=== PATIENT | female | born 1975 | race Caucasian/White ===

== ENCOUNTER 2018-02-26 23:17 | Emergency (ER) | payer BC ==
[2018-02-26] MEDS ORDERED: Acetaminophen 500 MG Tab PO ONE (23:32)
--- NOTE | 2018-02-26 23:36 | EDM.PDOC ---
ED HPI GENERAL MEDICAL PROBLEM - General Chief Complaint: Chest Pain Stated Complaint: CHEST PAIN Time Seen by Provider: 02/26/18 23:20 Source of Information: Reports: Patient, Old Records History Limitations: Reports: No Limitations - History of Present Illness INITIAL COMMENTS - FREE TEXT/NARRATIVE: Bessy returns to [facility] ED with precordial chest pains, sharp in nature, with some radiation into both shoulders this pm. 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 There is no SOB, palpitations, sweats, nausea or rash. She has tried no meds. She has been seen for similar sxs in the past. - Related Data Allergies Allergy/AdvReac Type Severity Reaction Status Date / Time No Known Allergies Allergy Verified 02/26/18 23:52 Home Meds: Home Meds Albuterol [Ventolin HFA] 2 inhaler PO ASDIRECTED 02/26/18 [History] Omeprazole 20 mg PO ASDIRECTED 02/26/18 [History] Sertraline [Zoloft] 100 mg PO DAILY 02/26/18 [History] Past Medical History Respiratory History: Reports: Asthma Gastrointestinal History: Reports: Gastritis, GERD Psychiatric History: Reports: Depression Endocrine/Metabolic History: Reports: Obesity/BMI 30+ Dermatologic History: Reports: Other (See Below) Other Dermatologic History: boil removed - Infectious Disease History Infectious Disease History: Reports: Chicken Pox - Past Surgical History Female Surgical History: Reports: Breast Reduction Musculoskeletal Surgical History: Reports: Arthroscopic Knee Social & Family History - Tobacco Use Smoking Status *Q: Former Smoker Years of Tobacco use: 10 Used Tobacco, but Quit: Yes Month/Year Tobacco Last Used: 12 YEARS AGO Second Hand Smoke Exposure: No - Caffeine Use Caffeine Use: Reports: None - Alcohol Use Days Per Week of Alcohol Use: 3 Number of Drinks Per Day: 3 Total Drinks Per Week: 9 - Recreational Drug Use Recreational Drug Use: No ED ROS GENERAL - Review of Systems Review Of Systems: ROS reveals no pertinent complaints other than HPI. ED EXAM, GENERAL - Physical Exam Exam: See Below Exam Limited By: No Limitations General Appearance: Alert, WD/WN, No Apparent Distress, Anxious Eye Exam: Bilateral Eye: EOMI, Normal Inspection, PERRL Ears: Normal External Exam Nose: Normal Inspection Throat/Mouth: Normal Inspection, Normal Oropharynx Head: Normocephalic Neck: Normal Inspection, Supple, Non-Tender, Full Range of Motion Respiratory/Chest: No Respiratory Distress, Lungs Clear, Normal Breath Sounds, No Accessory Muscle Use, Other (chest tender at costochondral cartilages #2,3, 4 L>>R) Cardiovascular: Regular Rate, Rhythm, No Edema, No Gallop, No JVD, No Murmur GI/Abdominal: Normal Bowel Sounds, Soft, Non-Tender, No Organomegaly, No Distention, No Mass Back Exam: Normal Inspection Extremities: Normal Inspection Neurological: Alert, Oriented, CN II-XII Intact, Normal Gait, No Motor/Sensory Deficits Psychiatric: Normal Affect, Anxious Skin Exam: Warm, Dry, Intact Lymphatic: No Adenopathy Course - Vital Signs Text/Narrative:: Bessy remained stable at the [facility] ED, screening labs were baseline, including Troponin I <0.017. The ekg was unchanged, NSR. Her pain is chest wall, and possibly occupational. Last Recorded V/S: Last Vital Signs Temp 36.9 C 02/26/18 23:27 Pulse 74 02/26/18 23:27 Resp 14 02/26/18 23:27 BP 136/66 02/26/18 23:27 Pulse Ox 96 02/26/18 23:27 - Orders/Labs/Meds Orders: Active Orders 24 hr Category Date Time Status EKG Documentation Completion [RC] ASDIRECTED Care 02/26/18 23:33 Inactive EKG 12 Lead [EK] Routine Ther 02/26/18 23:33 Ordered Labs: Laboratory Tests 02/26/18 02/26/18 02/26/18 Range/Units 23:45 23:45 23:45 WBC 6.7 (4.5-12.0) X10-3/uL RBC 3.81 (3.23-5.20) x10(6)uL Hgb 11.7 (11.5-15.5) g/dL Hct 36.1 (30.0-51.3) % MCV 94.9 (80-96) fL MCH 30.8 (27.7-33.6) pg MCHC 32.4 (32.2-35.4) g/dL RDW 13.9 (11.5-15.5) % Plt Count 159 (125-369) X10(3)uL MPV 9.4 (7.4-10.4) fL Neut % (Auto) 82.3 H (46-82) % Lymph % (Auto) 10.0 L (13-37) % [place] % (Auto) 5.4 (4-12) % Eos % (Auto) 2 (1.0-5.0) % Baso % (Auto) 1 (0-2) % Neut # (Auto) 5.4 (1.6-8.3) # Lymph # (Auto) 0.7 (0.6-5.0) # [place] # (Auto) 0.4 (0.0-1.3) # Eos # (Auto) 0.1 (0.0-0.8) # Baso # (Auto) 0.1 (0.0-0.2) # Sodium 138 (135-145) mmol/L Potassium 3.8 (3.5-5.3) mmol/L Chloride 102 (100-110) mmol/L Carbon Dioxide 28 (21-32) mmol/L BUN 16 (7-18) mg/dL Creatinine 0.9 (0.55-1.02) mg/dL Est Cr Clr Drug Dosing 75.45 mL/min Estimated GFR (MDRD) > 60 (>60) BUN/Creatinine Ratio 17.8 (9-20) Glucose 108 (80-116) mg/dL Calcium 8.7 (8.6-10.2) mg/dL Troponin I < 0.017 L (<0.017-0.056) ng/mL Meds: Medications Discontinued Medications Generic Name Dose Route Start Last Admin Trade Name Freq PRN Reason Stop Dose Admin Acetaminophen 1,000 mg 02/26/18 23:32 02/26/18 23:52 Tylenol Extra Strength PO 02/26/18 23:33 1,000 mg ONETIME ONE Administration Departure - Departure Time of Disposition: 01:11 Disposition: Home, Self-Care 01 Condition: Good Clinical Impression: Chest pain Qualifiers: Chest pain type: other chest pain Qualified Code(s): R07.89 - Other chest pain ; R07.8 - Other chest pain - Discharge Information Referrals: Zeinab Mcginnis PA [Primary Care Provider] - Forms: ED Department Discharge - Problem List & Annotations (1) Chest pain SNOMED Code(s): 20531871 Code(s): R07.9 - CHEST PAIN, UNSPECIFIED Status: Acute Current Visit: Yes Annotation/Comment:: Atypical chest pain with chest wall features, improved with Tylenol this early am. Qualifiers: Chest pain type: other chest pain Qualified Code(s): R07.89 - Other chest pain; R07.8 - Other chest pain - Problem List Review Problem List Initiated/Reviewed/Updated: Yes - My Orders Last 24 Hours: My Active Orders 02/26/18 23:33 EKG Documentation Completion [RC] ASDIRECTED EKG 12 Lead [EK] Routine - Assessment/Plan Last 24 Hours: My Active Orders 02/26/18 23:33 EKG Documentation Completion [RC] ASDIRECTED EKG 12 Lead [EK] Routine Plan: Follow up with PCP if needed.
[2018-02-27 09:23] VITALS: BP 133/64
== END 2018-02-27 01:50 | disposition home or self-care (01) ==
LOC: FB.ED 23:17
DX: R07.2 Precordial pain (principal); F32.9 Major depressive disorder, single episode, unspecified; Z79.899 Other long term (current) drug therapy; Z87.891 Personal history of nicotine dependence
CPT/HCPCS: 36415; 80048; 84484; 85025; 93005; 99284; A9270-GY

== ENCOUNTER 2021-03-02 19:06 | Emergency (ER) | payer OTHER, BC ==
[2021-03-02] MEDS ORDERED: Lidocaine 2% 20 ML MDV INFILT ONE (19:07)
[2021-03-02] MEDS ORDERED: Lidocaine/EPINEPHrine/Tetracaine Soln 5 ML Each TOP ONE (19:39)
[2021-03-02 19:49] VITALS: BP 172/92; PULSE 91
--- NOTE | 2021-03-02 21:00 | EDM.PDOC ---
ED HPI GENERAL MEDICAL PROBLEM - General Chief Complaint: Laceration Stated Complaint: LEFT PINKY INJURY Time Seen by Provider: 03/02/21 19:50 Source of Information: Reports: Patient History Limitations: Reports: No Limitations - History of Present Illness INITIAL COMMENTS - FREE TEXT/NARRATIVE: Patient presented to the ED because of left 5th finger injury. She slammed her left pinky on the door and sustained a 1 cm irregular laceration o the mid phalanx. She is able to extend and flex her finger without any difficulty. Left Finger-Little Pain Score (Numeric/FACES): 6 - Related Data Allergies Allergy/AdvReac Type Severity Reaction Status Date / Time No Known Allergies Allergy Verified 02/26/18 23:52 Home Meds: Home Meds Albuterol [Ventolin HFA] 2 inhaler PO ASDIRECTED 02/26/18 [History] Omeprazole 20 mg PO ASDIRECTED 02/26/18 [History] Sertraline [Zoloft] 100 mg PO DAILY 02/26/18 [History] Past Medical History Respiratory History: Reports: Asthma Gastrointestinal History: Reports: Gastritis, GERD Psychiatric History: Reports: Depression Endocrine/Metabolic History: Reports: Obesity/BMI 30+ Dermatologic History: Reports: Other (See Below) Other Dermatologic History: boil removed - Infectious Disease History Infectious Disease History: Reports: Chicken Pox - Past Surgical History Female Surgical History: Reports: Breast Reduction Musculoskeletal Surgical History: Reports: Arthroscopic Knee Other Musculoskeletal Surgeries/Procedures:: R knee scope Social & Family History - Family History Family Medical History: No Pertinent Family History - Tobacco Use Tobacco Use Status *Q: Never Tobacco User - Caffeine Use Caffeine Use: Reports: Coffee, Soda - Recreational Drug Use Recreational Drug Use: No ED ROS GENERAL - Review of Systems Review Of Systems: See Below Constitutional: Reports: No Symptoms HEENT: Reports: No Symptoms Respiratory: Reports: No Symptoms Cardiovascular: Reports: No Symptoms Endocrine: Reports: No Symptoms GI/Abdominal: Reports: No Symptoms : Reports: No Symptoms Musculoskeletal: Reports: No Symptoms Skin: Reports: Wound Neurological: Reports: No Symptoms Psychiatric: Reports: No Symptoms ED EXAM, SKIN/RASH Exam: See Below Exam Limited By: No Limitations General Appearance: Alert, No Apparent Distress Eye Exam: Bilateral Eye: PERRL Ears: Normal External Exam, Normal Canal, Hearing Grossly Normal Nose: Normal Inspection, Normal Mucosa, No Blood Throat/Mouth: Normal Inspection, Normal Lips Head: Atraumatic, Normocephalic Neck: Normal Inspection, Supple, Non-Tender, Full Range of Motion Respiratory/Chest: No Respiratory Distress, Lungs Clear, Normal Breath Sounds, No Accessory Muscle Use, Chest Non-Tender Cardiovascular: Normal Peripheral Pulses, Regular Rate, Rhythm, No Edema, No Gallop, No JVD, No Murmur, No Rub GI/Abdominal: Normal Bowel Sounds, Soft, Non-Tender, No Organomegaly, No Distention, No Abnormal Bruit, No Mass Back Exam: Normal Inspection, Full Range of Motion Extremities: Normal Inspection, Normal Range of Motion, Non-Tender, No Pedal Edema, Normal Capillary Refill Neurological: Alert, Oriented, CN II-XII Intact, Normal Cognition, Normal Gait, Normal Reflexes, No Motor/Sensory Deficits Psychiatric: Normal Affect, Normal Mood Skin: Warm, Normal Color, No Rash ED SKIN PROCEDURES - Laceration/Wound Repair Left Digit - 5th (Baby) Appearance: Superficial Distal NVT: Neuro & Vascular Intact Local Anesthesia - Lidocaine (Xylocaine): 2% Plain Local Anesthetic Volume: 1cc Skin Prep: Chlorhexidine (Hibiciens) Closed with: Sutures Lac/Wound length In cm: 1 Suture Size: 4-0 # of Sutures: 4 Suture Type: Nylon, Interrupted Course - Vital Signs Text/Narrative:: UTD with immunization Last Recorded V/S: Last Vital Signs Temp 36.7 C 03/02/21 19:44 Pulse 91 03/02/21 19:44 Resp 18 03/02/21 19:44 BP 172/92 H 03/02/21 19:44 Pulse Ox 100 03/02/21 19:44 - Orders/Labs/Meds Orders: Active Orders 24 hr Category Date Time Status Fingers Fifth Digit Lt F4 [CR] Stat Exams 03/02/21 19:38 Taken Meds: Medications Discontinued Medications Generic Name Dose Route Start Last Admin Trade Name Freq PRN Reason Stop Dose Admin Lidocaine/Tetracaine 5 ml 03/02/21 19:39 03/02/21 20:00 Lidocaine/Epinephrine/Tetracaine Soln 5 Ml Each TOP 03/02/21 19:40 5 ml ONETIME ONE Administration Departure - Departure Time of Disposition: 21:00 Disposition: Home, Self-Care 01 Condition: Good Clinical Impression: Laceration, Finger injury - Discharge Information Instructions: Laceration Care, Adult Referrals: Zeinab Mcginnis PA [Primary Care Provider] - Forms: ED Department Discharge Additional Instructions: Please read discharge instructions on laceration No need to apply an antibiotic ointment Removal of suture in 10 days Take tylenol 1000 mg every 8 hours as needed for pain Sepsis Event Note (ED) - Evaluation Sepsis Screening Result: No Definite Risk - Focused Exam Vital Signs: Vital Signs Temp Pulse Resp BP Pulse Ox 03/02/21 19:44 36.7 C 91 18 172/92 H 100 - My Orders Last 24 Hours: My Active Orders 03/02/21 19:38 Fingers Fifth Digit Lt F4 [CR] Stat - Assessment/Plan Last 24 Hours: My Active Orders 03/02/21 19:38 Fingers Fifth Digit Lt F4 [CR] Stat
--- NOTE | 2021-03-03 14:49 | CR ---
INDICATION: Injury - caught between two carts at work. 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 A definite acute fracture or dislocation was not identified. If symptoms persist - if occult fracture site is suspected clinically, reexamination in 10-14 days may be helpful. SEAND
== END 2021-03-02 21:34 | disposition home or self-care (01) ==
LOC: FB.ED 19:06
DX: S61.217A Laceration without foreign body of left little finger without damage to nail, initial encounter (principal); J45.909 Unspecified asthma, uncomplicated; E66.9 Obesity, unspecified; Z79.899 Other long term (current) drug therapy; W23.0XXA Caught, crushed, jammed, or pinched between moving objects, initial encounter
CPT/HCPCS: 12001; 73140-F4; 99000; 99282; 99283-25; A9270-GY

== ENCOUNTER 2023-05-01 07:39 | Day surgery (SDC) | payer BC, OTHER ==
[2023-05-01] MEDS ORDERED: Propofol 200 MG/20 ML SDV IV ONE (07:40)
[2023-05-01] MEDS ORDERED: Midazolam 1 MG/ML 2 ML SDV IV ONE (07:40)
[2023-05-01] MEDS ORDERED: Ketamine 500 mg/10 ML MDV IV ONE (07:40)
[2023-05-01] MEDS ORDERED: Sodium Chloride 0.9% 10 ML Syringe FLUSH PRN (07:45)
[2023-05-01] MEDS ORDERED: Lactated Ringers 1,000 ML IV SCH (07:45)
[2023-05-01 09:03] VITALS: BP 170/98; PULSE 66
[2023-05-01] MEDS ORDERED: Simethicone Drops 40 MG/0.6 ML 30 ML Bottle PO ONE ×2 (09:12→09:20)
== END 2023-05-01 10:20 | disposition home or self-care (01) ==
LOC: FB.SDS 07:39
PROVIDERS: ATTEND Surgery
DX: Z12.11 Encounter for screening for malignant neoplasm of colon (principal); F41.9 Anxiety disorder, unspecified; J45.909 Unspecified asthma, uncomplicated; Z79.899 Other long term (current) drug therapy; Z98.890 Other specified postprocedural states; Z87.891 Personal history of nicotine dependence
CPT/HCPCS: 00812; A9270-GY; J2250; J2704; J3490; J7120